=== PATIENT | male | born 1975 | race Caucasian/White ===

== ENCOUNTER 2024-06-12 08:14 | Day surgery (SDC) | payer OTHER ==
[2024-06-12] MEDS ORDERED: Propofol 200 MG/20 ML SDV ONE (08:33)
[2024-06-12] MEDS ORDERED: Midazolam 1 MG/ML 2 ML SDV ONE (08:33)
[2024-06-12] MEDS ORDERED: fentaNYL 50 MCG/ML SDV ONE (08:33)
[2024-06-12] MEDS: Lactated Ringers 1,000 ML IV SCH (09:16)
== END 2024-06-12 12:02 | disposition home or self-care (01) ==
LOC: JP.SDS 08:14
PROVIDERS: ATTEND Family Medicine
DX: Z12.11 Encounter for screening for malignant neoplasm of colon (principal); E66.9 Obesity, unspecified; Z91.048 Other nonmedicinal substance allergy status
CPT/HCPCS: G0121; J2250; J2704; J3010; J7120; 00812-QZ; 45378